=== PATIENT | female | born 1950 | race Caucasian/White ===

== ENCOUNTER → 2016-12-11 | Outpatient (CLI) | payer BC ==
[~2016-12-11] MED LIST: ALBU8.5HRX INH; ASPI-875 PO; AZTH250C PO; BUDE6HFA INH; CALC-687 PO; CALC-712 PO; CHOL10003 PO; CHOL400T3 PO; DICL75TA2 PO; E400C PO; FISH1CAP15 PO; FURO40TA4 PO; GINK60CA13 PO; HYDR-34 PO; IPRA3AMP11 INH; MELO-195 PO; MULT-856 PO; OLME1TAB25 PO; OMG1KC PO; OXYB5TAB9 PO; PHEN-633 PO; PHEN30TA37 PO; PHENOBARBITAL 32.4 MG PO; POTA20TA7 PO; POTA8TAB PO; PRD20T PO; UBID100C17 PO; [UNRECOGNIZED DRUG - OTHER] PO
--- NOTE | 2016-12-11 16:00 | Diagnostic Imaging Report ---
INDICATION: Bilateral knee pain. FINDINGS: Nonweightbearing images of the knees for review. There is approximately 75% narrowing of medial compartment in the left knee. There is approximately 50% narrowing of medial compartment on the right. Mild osteophyte formation is seen along the femoral condyle and tibia both laterally and medially on both knees. The patellofemoral joints are in good alignment. There is some mild osteophyte formation along the patellofemoral joint bilaterally. There are no fractures. No loose bodies or chondrocalcinosis noted. IMPRESSION: 1. Findings are consistent with bilateral degenerative osteoarthritic disease most severe in the medial compartment. Dictated by: Dictated on workstation # [id number]
== END ==
LOC: RAD 10:54
PROVIDERS: ATTEND Nurse Practitioner Family
DX: S89.91XA Unspecified injury of right lower leg, initial encounter (principal); S89.92XA Unspecified injury of left lower leg, initial encounter; M17.0 Bilateral primary osteoarthritis of knee; W19.XXXA Unspecified fall, initial encounter

== ENCOUNTER → 2017-05-18 | Outpatient (CLI) | payer MEDICARE, OTHER ==
--- NOTE | 2017-05-18 14:07 | Diagnostic Imaging Report ---
PROCEDURE: US Thyroid. TECHNIQUE: Multiple real-time grayscale images were obtained of the thyroid in various projections. INDICATION: Followup nodules. FINDINGS: The right thyroid lobe is 3.6 x 1.9 x 1.9 cm. The left lobe is 3.1 x 2.0 x 1.8 cm. In the upper aspect of the right thyroid lobe there is a 0.7 x 0.8 x 0.6-cm mixed complex cystic nodule seen. In the upper aspect of the left lobe there is a complex-appearing cystic lesion as well measuring 0.9 x 0.6 x 0.6 cm. No significant internal color Doppler signal is seen. When compared to 05/20/2016, there is minimal enlargement in the upper right thyroid nodule. No other thyroid nodule seen. IMPRESSION: Subcentimeter partially cystic thyroid nodules seen bilaterally minimally more prominent compared to the prior exam. Dictated by: Dictated on workstation # [id number]
== END ==
LOC: RAD 13:02
PROVIDERS: ATTEND Internal Medicine Endocrinology, Diabetes & Metabolism
DX: E04.2 Nontoxic multinodular goiter (principal)
CPT/HCPCS: 76536

== ENCOUNTER → 2018-06-01 | Outpatient (CLI) | payer BC, MEDICARE ==
--- NOTE | 2018-06-01 17:21 | Diagnostic Imaging Report ---
PROCEDURE: US thyroid. TECHNIQUE: Multiple real-time grayscale images were obtained of the thyroid in various projections. INDICATION: Followup thyroid nodule. COMPARISON: . FINDINGS: The thyroid is normal in size. The right thyroid lobe measures 4.7 x 2.3 x 2.3 cm. The left thyroid lobe measures 4.5 x 2.1 x 1.5 cm. There are bilateral well-circumscribed hypoechoic nodules with mixed solid and cystic component. These are not changed in size or appearance since prior examination. The right thyroid nodule measures 0.9 x 0.7 cm (previously 0.8 x 0.8 cm) and the left thyroid nodule measures 1.1 x 0.8 cm (previously 1.0 x 0.9 cm). IMPRESSION: Bilateral thyroid nodules are unchanged and have no imaging features that would indicate thyroid cancer. Dictated by: Dictated on workstation # [id number]
== END ==
LOC: RAD 15:49
PROVIDERS: ATTEND Internal Medicine Endocrinology, Diabetes & Metabolism
DX: E04.2 Nontoxic multinodular goiter (principal)
CPT/HCPCS: 76536

== ENCOUNTER → 2021-08-28 | Outpatient (CLI) | payer MEDICARE | LOC: LABNPT 08:46 | PROVIDERS: ATTEND Family Medicine | DX: Z01.812 Encounter for preprocedural laboratory examination (principal); Z20.822 Contact with and (suspected) exposure to COVID-19 | CPT/HCPCS: 87635 ==

== ENCOUNTER 2021-08-30 20:39 | Outpatient (CLI) | payer MEDICARE | END 2021-08-31 08:09 | disposition home or self-care (01) | LOC: SLEEP 20:39 | PROVIDERS: ATTEND Nurse Practitioner Family | DX: Z01.818 Encounter for other preprocedural examination (principal); G47.33 Obstructive sleep apnea (adult) (pediatric); G47.10 Hypersomnia, unspecified; I10 Essential (primary) hypertension; G47.36 Sleep related hypoventilation in conditions classified elsewhere; J44.9 Chronic obstructive pulmonary disease, unspecified | CPT/HCPCS: 95811 ==

== ENCOUNTER → 2022-04-07 | Outpatient (CLI) | payer MEDICARE | LOC: WOUNDCARE 09:30 | PROVIDERS: ATTEND Family Medicine | DX: L89.314 Pressure ulcer of right buttock, stage 4 (principal); A49.9 Bacterial infection, unspecified; D69.6 Thrombocytopenia, unspecified; L24.A2 Irritant contact dermatitis due to fecal, urinary or dual incontinence; F03.91 Unspecified dementia, unspecified severity, with behavioral disturbance; E66.01 Morbid (severe) obesity due to excess calories; M62.81 Muscle weakness (generalized); R63.4 Abnormal weight loss | CPT/HCPCS: 87070; 87205; G0463; 99214 ==

== ENCOUNTER → 2022-04-21 | Outpatient (CLI) | payer MEDICARE | LOC: WOUNDCARE 09:01 | PROVIDERS: ATTEND Family Medicine | DX: L89.314 Pressure ulcer of right buttock, stage 4 (principal); A49.9 Bacterial infection, unspecified; M62.81 Muscle weakness (generalized); E66.01 Morbid (severe) obesity due to excess calories; D69.6 Thrombocytopenia, unspecified; L24.A2 Irritant contact dermatitis due to fecal, urinary or dual incontinence; F03.90 Unspecified dementia, unspecified severity, without behavioral disturbance, psychotic disturbance, mood disturbance, and anxiety; R63.4 Abnormal weight loss; I96 Gangrene, not elsewhere classified | CPT/HCPCS: 11042; G0463 ==

== ENCOUNTER → 2022-05-04 | Outpatient (CLI) | payer MEDICARE | LOC: WOUNDCARE 09:23 | PROVIDERS: ATTEND Family Medicine | DX: L89.314 Pressure ulcer of right buttock, stage 4 (principal); A49.9 Bacterial infection, unspecified; R63.4 Abnormal weight loss; M62.81 Muscle weakness (generalized); E66.01 Morbid (severe) obesity due to excess calories; D69.6 Thrombocytopenia, unspecified; L24.A2 Irritant contact dermatitis due to fecal, urinary or dual incontinence; F03.90 Unspecified dementia, unspecified severity, without behavioral disturbance, psychotic disturbance, mood disturbance, and anxiety; B37.2 Candidiasis of skin and nail; I96 Gangrene, not elsewhere classified | CPT/HCPCS: 11042; 11045; G0463 ==

== ENCOUNTER → 2022-05-13 | Outpatient (CLI) | payer MEDICARE | LOC: WOUNDCARE 12:59 | PROVIDERS: ATTEND Family Medicine | DX: I96 Gangrene, not elsewhere classified (principal); L89.314 Pressure ulcer of right buttock, stage 4; D69.6 Thrombocytopenia, unspecified; L24.A2 Irritant contact dermatitis due to fecal, urinary or dual incontinence; A49.9 Bacterial infection, unspecified; F03.90 Unspecified dementia, unspecified severity, without behavioral disturbance, psychotic disturbance, mood disturbance, and anxiety; E66.01 Morbid (severe) obesity due to excess calories; M62.81 Muscle weakness (generalized); B37.2 Candidiasis of skin and nail; R63.4 Abnormal weight loss | CPT/HCPCS: 99213 ==

== ENCOUNTER → 2022-05-20 | Outpatient (CLI) | payer MEDICARE ==
[~2022-05-20] MED LIST changes: +GADOTERATE 0.5 MMOL/ML (CLARISCAN) 20 ML VIAL IV ONE
--- NOTE | 2022-05-20 15:02 | Diagnostic Imaging Report ---
PROCEDURE: MRI pelvis with and without contrast. TECHNIQUE: Multiplanar, multisequence MRI of the pelvis was performed with and without contrast. INDICATION: Sacral wound COMPARISON: None available. FINDINGS: Air-filled cleft ulcer is likely present along inferior aspect of the gluteal crease. The base of the ulcer extends no deeper than the subcutaneous fat. There is no T2 hyperintense or T1 hypointense marrow changes within the sacrum or coccyx that would indicate underlying osteomyelitis. The remainder of the osseous structures of pelvis are normal in signal. Bentley catheter decompresses urinary bladder. There is a 4.6 x 4.4 cm fibroid within the anterior aspect of the uterine body. Additional smaller fibroids are present. No free pelvic fluid. No pelvic or inguinal lymphadenopathy. IMPRESSION: 1. Dermal ulcer in the inferior aspect of the gluteal crease is filled with air along the tract. There is no abscess or fistula tract. 2. No osteomyelitis of the underlying sacrum or coccyx. Dictated by: Dictated on workstation # [id number]
== END ==
LOC: RAD 08:59
PROVIDERS: ATTEND Family Medicine
DX: L89.314 Pressure ulcer of right buttock, stage 4 (principal)
CPT/HCPCS: 72197

== ENCOUNTER → 2022-05-21 | Outpatient (CLI) | payer MEDICARE ==
[~2022-05-21] MED LIST changes: -GADOTERATE 0.5 MMOL/ML (CLARISCAN) 20 ML VIAL IV ONE
== END ==
LOC: WOUNDCARE 11:18
PROVIDERS: ATTEND Family Medicine
DX: I96 Gangrene, not elsewhere classified (principal); L89.314 Pressure ulcer of right buttock, stage 4; D69.6 Thrombocytopenia, unspecified; L24.A2 Irritant contact dermatitis due to fecal, urinary or dual incontinence; F03.91 Unspecified dementia, unspecified severity, with behavioral disturbance; B37.2 Candidiasis of skin and nail; J96.11 Chronic respiratory failure with hypoxia; I95.89 Other hypotension; E66.01 Morbid (severe) obesity due to excess calories; M62.81 Muscle weakness (generalized); R63.4 Abnormal weight loss
CPT/HCPCS: 99213